=== PATIENT | male | born 1985 | race Caucasian/White ===

== ENCOUNTER 2021-01-03 18:39 | Emergency (ER) | payer OTHER ==
[2021-01-03 18:56] VITALS: BP 137/87
[2021-01-03 19:18] LABS: BASOPHILS # (AUTO) 0.1 10^3/uL (0.0-0.1); BASOPHILS % (AUTO) 0.6 %; EOSINOPHILS # (AUTO) 0.6 10^3/uL (0.0-0.7); EOSINOPHILS % (AUTO) 6.8 %; HCT - HEMATOCRIT 44.5 % (42.0-52.0); HGB - HEMOGLOBIN 15.3 g/dL (14.0-18.0); LYMPHOCYTES # (AUTO) 2.4 10^3/uL (1.5-3.5); LYMPHOCYTES % (AUTO) 28.1 %; MEAN CORPUSCULAR HEMOGLOBIN 30.4 pg (27.0-31.0); MEAN CORPUSCULAR HGB CONC 34.4 g/dL (32.0-36.0); MEAN CORPUSCULAR VOLUME 88.3 fL (80.0-94.0); MEAN PLATELET VOLUME 12.4 fL (7.4-11.4); MONOCYTES # (AUTO) 0.9 10^3/uL (0.0-1.0); NEUTROPHILS # (AUTO) 4.6 10^3/uL (1.5-6.6); NEUTROPHILS % (AUTO) 54.1 %; PLT - PLATELET COUNT 226 10^3/uL (130-450); RED BLOOD COUNT 5.04 10^6/uL (4.70-6.10); RED CELL DISTRIBUTION WIDTH 12.1 % (12.0-15.0); WHITE BLOOD COUNT 8.5 x10^3/uL (4.8-10.8)
--- NOTE | 2021-01-03 19:26 | XRAY Report ---
PROCEDURE: Chest 1 View X-Ray INDICATIONS: Chest pain TECHNIQUE: One view of the chest was acquired. COMPARISON: None FINDINGS: Surgical changes and devices: None. Lungs and pleura: No pleural effusions or pneumothorax. Lungs are clear. Mediastinum: Mediastinal contours appear normal. Heart size is normal. Bones and chest wall: No suspicious bony lesions. Overlying soft tissues appear unremarkable. IMPRESSION: No acute cardiopulmonary disease process. Reviewed by: Caitie England MD, PhD on 01/03/2021 7:25 PM PDT Approved by: Caitie England MD, PhD on 01/03/2021 7:25 PM PDT Station ID: [id number]
[2021-01-03 19:33] LABS: CREATININE 1.2 mg/dL (0.6-1.2); POTASSIUM 3.4 mmol/L (3.5-5.0)
[2021-01-03 19:34] LABS: ALBUMIN 4.6 g/dL (3.2-5.5); ALBUMIN/GLOBULIN RATIO 1.4 (1.0-2.2); BILIRUBIN,TOTAL 0.6 mg/dL (0.2-1.0); CALCIUM 9.3 mg/dL (8.5-10.3)
--- NOTE | 2021-01-03 19:48 | ED Physician Documentation ---
History of Present Illness - Stated complaint Stated Complaint: CP - Chief complaint Chief Complaint: Cardiac - History obtained from History obtained from: Patient (5-year-old male who presented with left-sided chest pain that started approximately 3 PM when he was getting off of work. Is nonradiating and he had no associated symptoms including diaphoresis, weakness, shortness of breath, nausea or vomiting. Pain was not worse with activity, and he cannot iden) Review of Systems Constitutional: reports: Reviewed and negative Eyes: reports: Reviewed and negative Ears: reports: Reviewed and negative Nose: reports: Reviewed and negative Throat: reports: Reviewed and negative Cardiac: reports: Chest pain / pressure. denies: Palpitations, Pedal edema, Calf pain Respiratory: reports: Reviewed and negative GI: reports: Reviewed and negative : reports: Reviewed and negative Skin: reports: Reviewed and negative Musculoskeletal: reports: Reviewed and negative Neurologic: reports: Reviewed and negative Psychiatric: reports: Reviewed and negative Endocrine: reports: Reviewed and negative PD PAST MEDICAL HISTORY - Present Medications Home Medications: Ambulatory Orders Medication Instructions Recorded Confirmed No Known Home Medications 01/03/21 01/03/21 - Allergies Allergies/Adverse Reactions: Allergies Allergy/AdvReac Type Severity Reaction Status Date / Time No Known Drug Allergies Allergy Verified 01/03/21 18:54 PD ED PE NORMAL - Vitals Vital signs reviewed: Yes - General General: Alert and oriented X 3, No acute distress, Well developed/nourished - HEENT HEENT: Atraumatic, Pharynx benign - Neck Neck: Supple, no meningeal sign, No JVD - Cardiac Cardiac: RRR, No murmur, No gallop, No rub, Strong equal pulses - Respiratory Respiratory: No respiratory distress, Clear bilaterally - Abdomen Abdomen: Normal bowel sounds, Soft, Non tender, Non distended - Derm Derm: Normal color, Warm and dry, No rash - Extremities Extremities: No deformity, No tenderness to palpate, Normal ROM s pain, No edema, No calf tenderness / cord - Neuro Neuro: Alert and oriented X 3, No motor deficit, No sensory deficit, Normal speech Eye Opening: Spontaneous Motor: Obeys Commands Verbal: Oriented GCS Score: 15 - Psych Psych: Normal mood, Normal affect Results - Vitals Vitals: Vital Signs - 24 hr 01/03/21 18:54 Temperature 36.6 C Heart Rate 70 Respiratory 18 Rate Blood Pressure 137/87 H O2 Saturation 97 - EKG (time done) No standard instances Rate: Rate (enter#) (70) Rhythm: NSR [place]: Normal Intervals: Normal [place] QRS: Normal Ischemia: Non specific changes Compare to prior EKG: Old EKG unavailable Computer interpretation: Agree with computer - Labs Labs: Laboratory Tests 01/03/21 01/03/21 01/03/21 19:13 19:13 19:13 WBC 8.5 RBC 5.04 Hgb 15.3 Hct 44.5 MCV 88.3 MCH 30.4 MCHC 34.4 RDW 12.1 Plt Count 226 MPV 12.4 H Neut # (Auto) 4.6 Lymph # (Auto) 2.4 [place] # (Auto) 0.9 Eos # (Auto) 0.6 Baso # (Auto) 0.1 Absolute Nucleated RBC 0.00 Nucleated RBC % 0.0 Sodium 134 L Potassium 3.4 L Chloride 99 L Carbon Dioxide 25 Anion Gap 10.0 BUN 26 H Creatinine 1.2 Estimated GFR (MDRD) 68 L Glucose 103 H Calcium 9.3 Total Bilirubin 0.6 AST 25 ALT 37 Alkaline Phosphatase 74 Troponin I High Sens 3.9 Total Protein 8.0 Albumin 4.6 Globulin 3.4 Albumin/Globulin Ratio 1.4 Lipase 34 PD MEDICAL DECISION MAKING - ED course Complexity details: re-evaluated patient, considered differential, d/w patient ED course: 35-year-old who presented with chest pain. Differentials include acs, atypical cp, pe, pna, ptx. Cardiac work-up including EKG, chest x-ray, labs reassure. Chest pain is atypical and his heart score is zero, well's score of 0. I advised the patient to follow-up with his primary care provider as scheduled on February 01, return to the ER sooner if he has new or worsening symptoms. Departure - Departure Disposition: 01 Home, Self Care Clinical Impression: Atypical chest pain Condition: Good Instructions: ED Chest Pain NonCardiac Comments: You presented with chest pain today. We did a work-up including EKG, chest x- ray, labs which were all reassuring. Recommend he follow-up with your primary care doctor as scheduled on February 01, return to the ER sooner if you have new or worsening symptoms.
== END 2021-01-03 20:23 | disposition home or self-care (01) ==
LOC: ED 18:39
DX: R07.89 Other chest pain (principal)
CPT/HCPCS: 36415; 80053; 83690; 84484; 85025; 93005; 99283; 99284

== ENCOUNTER 2022-08-25 13:57 | Emergency (ER) | payer OTHER ==
--- NOTE | 2022-08-25 14:37 | XRAY Report ---
PROCEDURE: Chest 1 View X-Ray INDICATIONS: Chest pain TECHNIQUE: One view of the chest was acquired. COMPARISON: None. FINDINGS: Surgical changes and devices: None. Lungs and pleura: No pleural effusions or pneumothorax. Lungs are clear. Mediastinum: Mediastinal contours appear normal. Heart size is normal. Bones and chest wall: No suspicious bony lesions. Overlying soft tissues appear unremarkable. IMPRESSION: No acute cardiopulmonary process. Reviewed by: Robert Mendez MD on 08/25/2022 1:36 PM AKDT Approved by: Robert Mendez MD on 08/25/2022 1:36 PM AKDT Station ID: [id number]
[2022-08-25 14:44] LABS: ALBUMIN 4.2 g/dL (3.2-5.5); ALBUMIN/GLOBULIN RATIO 1.1 (1.0-2.2); BASOPHILS % (AUTO) 0.8 %; BILIRUBIN,TOTAL 0.7 mg/dL (0.2-1.0); CALCIUM 9.6 mg/dL (8.5-10.3); CREATININE 1.1 mg/dL (0.6-1.2); EOSINOPHILS % (AUTO) 14.9 %; HCT - HEMATOCRIT 44.4 % (42.0-52.0); HGB - HEMOGLOBIN 15.1 g/dL (14.0-18.0); MEAN CORPUSCULAR HEMOGLOBIN 30.1 pg (27.0-31.0); MEAN CORPUSCULAR VOLUME 88.6 fL (80.0-94.0); MEAN PLATELET VOLUME 13.2 fL (7.4-11.4); MONOCYTES % (AUTO) 9.5 %; NEUTROPHILS % (AUTO) 49.5 %; PLT - PLATELET COUNT 216 10^3/uL (130-450); POTASSIUM 4.2 mmol/L (3.5-5.0); RED BLOOD COUNT 5.01 10^6/uL (4.70-6.10); RED CELL DISTRIBUTION WIDTH 12.1 % (12.0-15.0); TOTAL PROTEIN 7.9 g/dL (6.7-8.2); WHITE BLOOD COUNT 7.7 x10^3/uL (4.8-10.8)
[2022-08-25 14:47] LABS: SLIDE REVIEW? Indicated
[2022-08-25 14:48] LABS: ABNORMAL LYMPHS % (MANUAL) 0 %
[2022-08-25 15:11] LABS: BAND NEUTROPHILS % (MANUAL) 1 %; BASOPHILS # (MANUAL) 0.1 10^3/uL (0-0.1); BASOPHILS % (MANUAL) 1 %; LYMPHOCYTES # (MANUAL) 1.6 10^3/uL (1.5-3.5); LYMPHOCYTES % (MANUAL) 21 %; MONOCYTES # (MANUAL) 0.8 10^3/uL (0.0-1.0); NEUTROPHILS # (MANUAL) 4.2 10^3/uL (1.5-6.6)
[2022-08-25 15:12] LABS: DIFFERENTIAL COMMENT MANUAL DIFFERENTIAL; PLATELET ESTIMATE, MANUAL NORMAL (130-450,000) (NORMAL); PLATELET MORPHOLOGY 1+ GIANT PLATELETS (NORMAL); RBC MORPHOLOGY (MULTIPLE) NORMAL APPEARANCE (NORMAL)
--- NOTE | 2022-08-25 15:26 | ED Physician Documentation ---
PD HPI CHEST PAIN - Stated complaint Stated Complaint: ABD PAIN - Chief complaint Chief Complaint: Cardiac - History obtained from History obtained from: Patient - History of Present Illness Timing - onset: Last night Timing - onset during: Rest Timing - duration: Days (1) Timing - details: Abrupt onset, Still present Quality: Pressure, Tightness Location: Substernal Radiation: Abdominal Improved by: Other (burping) Worsened by: Position Associated symptoms: Nausea. No: Shortness of air, Diaphoresis, Vomiting, Feeling faint / dizzy, General Weakness, Palpitations, Cough Recently seen: Clinic - Additional information Additional information: 37-year-old Ankit Lira is on Ozempic for weight loss and he is on maximal dose. He has now developed abdominal pain in the form of a pressure in his epigastrium radiating to his back. He has not had this previously with his dosing. He indicates that today he is getting some relief with burping. He denies pain in his right upper quadrant. He does state that occasionally he will get a pain in the left upper quadrant he will push on it and after a while this pain will resolve. He describes pushing on the hepatic flexure. He rates the pain as an 8 out of 10 at maximum and currently 6 out of 10. Review of Systems Constitutional: denies: Fever Eyes: denies: Decreased vision Ears: denies: Ear pain Nose: denies: Rhinorrhea / runny nose, Congestion Throat: denies: Sore throat Cardiac: denies: Chest pain / pressure, Palpitations Respiratory: denies: Dyspnea, Cough GI: reports: Abdominal Pain, Nausea. denies: Vomiting, Constipation, Diarrhea : denies: Dysuria, Frequency Skin: denies: Rash Musculoskeletal: denies: Neck pain, Back pain, Extremity pain Neurologic: denies: Generalized weakness, Focal weakness, Numbness PD PAST MEDICAL HISTORY - Past Surgical History Past Surgical History: No - Present Medications Home Medications: Ambulatory Orders Medication Instructions Recorded Confirmed Dicyclomine [Bentyl] 1 - 2 tab PO QID PRN #30 cap 11/30/21 Fluticasone/Salmeterol [Advair 1 puffs INH DAILY 11/30/21 11/30/21 250-50 Diskus] Metoclopramide [Reglan] 10 mg PO Q6H PRN #20 tablet 11/30/21 Omeprazole Magnesium 20 mg PO DAILY 11/30/21 11/30/21 - Allergies Allergies/Adverse Reactions: Allergies Allergy/AdvReac Type Severity Reaction Status Date / Time No Known Drug Allergies Allergy Verified 08/25/22 14:05 - Social History Does the pt smoke?: No Smoking Status: Never smoker Does the pt drink ETOH?: Yes Does the pt have substance abuse?: No - Immunizations Immunizations are current?: Yes - POLST Patient has POLST: No PD ED PE NORMAL - Vitals Vital signs reviewed: Yes (hypertensive) - General General: Alert and oriented X 3, No acute distress, Well developed/nourished - HEENT HEENT: Atraumatic, PERRL, EOMI - Neck Neck: Supple, no meningeal sign, No bony TTP - Cardiac Cardiac: RRR, No murmur - Respiratory Respiratory: No respiratory distress, Clear bilaterally - Abdomen Abdomen: Normal bowel sounds, Soft, Non tender, Non distended, No organomegaly - Back Back: No CVA TTP, No spinal TTP - Derm Derm: Normal color, Warm and dry, No rash - Extremities Extremities: No deformity, No edema - Neuro Neuro: Alert and oriented X 3, deployment engineer 2-12 intact, No motor deficit, No sensory deficit, Normal speech Eye Opening: Spontaneous Motor: Obeys Commands Verbal: Oriented GCS Score: 15 - Psych Psych: Normal mood, Normal affect Results - Vitals Vitals: Vital Signs - 24 hr 08/25/22 08/25/22 08/25/22 13:59 15:35 16:51 Temperature 36.4 C L Heart Rate 71 64 58 L Respiratory 16 16 16 Rate Blood Pressure 130/89 H 134/104 H 159/97 H O2 Saturation 98 100 100 08/25/22 17:58 Temperature Heart Rate 72 Respiratory 16 Rate Blood Pressure 129/87 H O2 Saturation 100 Oxygen O2 Source Room air - EKG (time done) 1408 EKG releavant findings:: EKG personally interpreted by author of this note. Relevant findings are: Rate: Rate (enter#) (71) Rhythm: NSR Intervals: Normal [place] Ischemia: Normal ST segments Compare to prior EKG: Unchanged from prior EKG (SPT 01-03- no changes) Computer interpretation: Agree with computer - Labs Labs: Laboratory Tests 08/25/22 08/25/22 08/25/22 14:23 14:23 14:23 WBC 7.7 RBC 5.01 Hgb 15.1 Hct 44.4 MCV 88.6 MCH 30.1 MCHC 34.0 RDW 12.1 Plt Count 216 MPV 13.2 H Neut # (Auto) Not Reportable Lymph # (Auto) Not Reportable [place] # (Auto) Not Reportable Eos # (Auto) Not Reportable Baso # (Auto) Not Reportable Absolute Nucleated RBC Not Reportable Total Counted 100 Band Neuts % (Manual) 1 Abnorm Lymph % (Manual) 0 Nucleated RBC % Not Reportable Neutrophils # (Manual) 4.2 Lymphocytes # (Manual) 1.6 Monocytes # (Manual) 0.8 Eosinophils # (Manual) 1.0 H Basophils # (Manual) 0.1 Differential Comment MANUAL DIFFERENTIAL Manual Slide Review Indicated Platelet Estimate NORMAL (130-450,000) Platelet Morphology 1+ GIANT PLATELETS RBC Morph Micro Appear NORMAL APPEARANCE Sodium 138 Potassium 4.2 Chloride 105 Carbon Dioxide 26 Anion Gap 7.0 BUN 10 Creatinine 1.1 Estimated GFR (MDRD) 75 L Glucose 99 Calcium 9.6 Total Bilirubin 0.7 AST 27 ALT 46 Alkaline Phosphatase 84 Troponin I High Sens 2.6 Total Protein 7.9 Albumin 4.2 Globulin 3.7 Albumin/Globulin Ratio 1.1 Lipase 38 - Rads (name of study) CT ab pel Relevant Findings:: Prelim report reviewed (Impression: No acute CT findings in the abdomen and pelvis. Hepatic fatty infiltration. Appendectomy.), EMP independent interpretation of test PD Medical Decision Making - ED course Reviewed Lab Results: We reviewed a complete blood cell count showing a white blood cell count of 7.7 and normal hemoglobin hematocrit and platelets chemistries were completely unremarkable with normal electrolytes kidney and liver function and a high- sensitivity troponin was normal at 2.6. Electrocardiogram shows normal sinus rhythm with normal axes and intervals. My interpretation of these results are a benign process is causing the patient's symptoms. ED course: 37-year-old male on Ozempic is developed abdominal pain associated with burping and a knot in his stomach. He has 6 out of 10 pain. He had no relief with simethicone itself. We did do a CT scan of the abdomen pelvis without findings of specificity. He had normal blood work as well. I had no concern for coronary artery syndrome and the patient's work-up supports this. He does get some relief with the viscous lidocaine and states that he can tolerate the pain at home. Departure - Departure Disposition: Home, Self Care Clinical Impression: Medication side effects Condition: Stable Instructions: ED Chest Pain NonCardiac Follow-Up: DEDE BRYAN MD [Primary Care Provider] - Comments: Ankit today it looks like the pain you are having your stomach is not related to your heart and there is no solid organ abnormality on your CT scan. Your blood work is entirely normal. I suspect this pain you are having is related to your stomach not emptying normally, related to the Ozempic that you are taking. My recommendation is to talk to your prescribing doctor about lowering your dose.
[2022-08-25] MEDS ORDERED: iohexoL-300 100 ML VIAL ONE (16:01)
--- NOTE | 2022-08-25 16:33 | CT Report ---
PROCEDURE: CT abdomen pelvis with contrast INDICATIONS: epigastric pressure CONTRAST: 100ml omni 300 TECHNIQUE: After the administration of contrast, 5 mm thick sections acquired from the diaphragms to the symphys is. 5 mm thick coronal and sagittal reformats were acquired. For radiation dose reduction, the foll owing was used: automated exposure control, adjustment of mA and/or kV according to patient size. COMPARISON: None FINDINGS: Image quality: Excellent. Lung bases and heart: Unremarkable. Liver: Hepatic steatosis. No focal mass lesion Gallbladder and biliary tree: Spleen: No splenomegaly. Pancreas: No pancreatic ductal dilation. Adrenals: No adrenal nodule. Kidneys and ureters: No hydronephrosis. No renal cystic lesion which requires follow up. No solid mas s. Bowel and peritoneum: No bowel distension. No pathologic free fluid. Appendectomy. Lymph nodes: No central or retroperitoneal adenopathy. Vessels: No infrarenal aortic aneurysm. PELVIS Reproductive organs: Unremarkable. Bladder: No abnormal wall thickening, accounting for underdistension. Pelvic lymph nodes: No pelvic adenopathy by size criteria. Bones: No aggressive osseous abnormality. Other: No significant ventral or inguinal hernia. IMPRESSION: No acute CT findings in the abdomen and pelvis. Hepatic fatty infiltration. Appendectomy. Reviewed by: Robert Mendez MD on 08/25/2022 3:32 PM AKCARI Approved by: Robert Mendez MD on 08/25/2022 3:32 PM AKDT Station ID: [id number]
[2022-08-25] MEDS: MAG HYDROX/AL HYDROX/SIMETH 30 ML UDC PO STA ×2 (16:47→17:58)
[2022-08-25] MEDS: iohexoL-300 100 ML VIAL IVP ONE (17:30)
[2022-08-25] MEDS: LIDOCAINE VISCOUS 2% 15 ML ORAL SYRINGE MM STA (17:58)
[2022-08-25 18:02] VITALS: BP 129/87
== END 2022-08-25 18:13 | disposition home or self-care (01) ==
LOC: ED 13:57
DX: R10.13 Epigastric pain (principal); T38.3X5A Adverse effect of insulin and oral hypoglycemic [antidiabetic] drugs, initial encounter; Z79.51 Long term (current) use of inhaled steroids
CPT/HCPCS: 36415; 80053; 83690; 84484; 85025; 93005; 99283; 99284

== ENCOUNTER 2023-11-10 15:00 | Outpatient (CLI) | payer OTHER ==
--- NOTE | 2023-11-11 08:50 | XRAY Report ---
PROCEDURE: Knee 1-2V RT INDICATIONS: PAIN IN RIGHT KNEE TECHNIQUE: 2 views of the knee(s) were acquired. COMPARISON: None. FINDINGS: Bones: No fractures or dislocations. No suspicious bony lesions. Soft tissues: No knee joint effusion. No suspicious soft tissue calcifications or masses. IMPRESSION: No acute bony abnormality. Reviewed by: Luciano Weems MD on 11/11/2023 8:49 AM PDT Approved by: Luciano Weems MD on 11/11/2023 8:49 AM PDT Station ID: [id number]
== END 2023-11-10 15:01 | disposition home or self-care (01) ==
LOC: DI.N 15:00
PROVIDERS: ATTEND Nurse Practitioner
DX: M25.561 Pain in right knee (principal)